=== PATIENT | male | born 1965 | race Caucasian/White ===

== ENCOUNTER 2017-06-09 11:55 | Observation (INO) | payer OTHER ==
--- NOTE | 2017-06-09 12:24 | EKG REPORT ---
SEVERITY:- OTHERWISE NORMAL ECG - SINUS TACHYCARDIA : Confirmed by: Jed Loera MD 09-Jun-2017 12:23:16
[2017-06-09] MEDS ORDERED: NORMAL SALINE 1000 ML 1,000 ML IV ONE (12:30)
--- NOTE | 2017-06-09 12:31 | ER Document Report ---
ED Medical Screen (RME) - General Chief Complaint: Chest Tightness Stated Complaint: CHEST PAIN Time Seen by Provider: 06/09/17 12:20 Notes: Patient presents after calling his primary care physician for a routine checkup. He states that he was told to come the emergency department after he was told the primary care physician that he has been having continued shortness of breath and sternal chest pain. He denies any history of heart attacks but has had a history of blood clots in his lungs and legs and was on Xarelto in the past. He denies any leg swelling or leg pain at this time. He states that since approximately new years he has been having continued shortness of breath and chest discomfort. TRAVEL OUTSIDE OF THE [place] IN LAST 30 DAYS: No - Related Data Allergies/Adverse Reactions: No Known Allergies Allergy (Verified 06/09/17 11:59) Past Medical History - Past Medical History Cardiac Medical History: Reports: Hx DVT - 2006, 2011 Past Surgical History: Reports: Hx Orthopedic Surgery - Right knee - Immunizations Hx Diphtheria, Pertussis, Tetanus Vaccination: Yes Review of Systems - Review of Systems Cardiovascular: Chest pain Respiratory: Short of breath Physical Exam - Vital signs Vitals: Temp Pulse Resp BP Pulse Ox 98.6 F 111 H 16 144/84 H 98 06/09/17 12:14 06/09/17 12:14 06/09/17 12:14 06/09/17 12:14 06/09/17 12:14 - General General appearance: Appears well Course - Vital Signs Vital signs: Temp Pulse Resp BP Pulse Ox 98.6 F 111 H 16 144/84 H 98 06/09/17 12:14 06/09/17 12:14 06/09/17 12:14 06/09/17 12:14 06/09/17 12:14
[2017-06-09 13:02] LABS: ABSOLUTE BASOPHILS # (AUTO) 0.1 10^3/uL (0.0-0.2); ABSOLUTE EOSINOPHILS # (AUTO) 0.1 10^3/uL (0.0-0.6); ABSOLUTE LYMPHOCYTES (AUTO) 1.7 10^3/uL (0.5-4.7); ABSOLUTE MONOCYTES (AUTO) 0.4 10^3/uL (0.1-1.4); ABSOLUTE NEUT (AUTO) 3.5 10^3/uL (1.7-8.2); EOSINOPHILS % (AUTO) 2.1 % (0-6); HEMATOCRIT 42.5 % (37.9-51.0); HEMOGLOBIN 14.2 g/dL (13.5-17.0); MEAN CORPUSCULAR HEMOGLOBIN 32.6 pg (27.0-33.4); MEAN CORPUSCULAR HGB CONC 33.4 g/dL (32.0-36.0); MEAN CORPUSCULAR VOLUME 98 fl (80-97); MONOCYTES % (AUTO) 7.7 % (3-13); PLATELET COUNT 248 10^3/uL (150-450); RED BLOOD COUNT 4.35 10^6/uL (4.35-5.55); RED CELL DISTRIBUTION WIDTH 14.7 % (11.5-14.0); SEGMENTED NEUTROPHILS % (AUTO) 60.2 % (42-78); TOTAL CELLS COUNTED % (AUTO) 100 %; WHITE BLOOD COUNT 5.8 10^3/uL (4.0-10.5)
[2017-06-09 13:09] LABS: INTERNATIONAL RATION (INR) 0.86; PROTHROMBIN TIME 12.3 SEC (11.4-15.4)
[2017-06-09 13:11] LABS: D-DIMER 0.35 ug/mL (0.00-0.50)
[2017-06-09 13:27] LABS: BLOOD UREA NITROGEN 10 mg/dL (7-20); CALCIUM 9.6 mg/dL (8.4-10.2); CARBON DIOXIDE 22 mmol/L (22-30); CHLORIDE 104 mmol/L (98-107); GLUCOSE 110 mg/dL (75-110)
[2017-06-09 13:28] LABS: ALANINE AMINOTRANSFERASE 21 U/L (21-72); ALBUMIN 4.6 g/dL (3.5-5.0); ALKALINE PHOSPHATASE 64 U/L (38-126); ANION GAP 15 (5-19); ASPARTATE AMINO TRANSFERASE 22 U/L (17-59); BILIRUBIN,DIRECT 0.2 mg/dL (0.0-0.4); BILIRUBIN,TOTAL 0.7 mg/dL (0.2-1.3)
[2017-06-09 13:36] LABS: NT PRO BNP 34 pg/mL (5-900)
[2017-06-09 13:37] LABS: TROPONIN I < 0.012 ng/mL
--- NOTE | 2017-06-09 13:37 | RADIOLOGY REPORT (SQ) ---
EXAM DESCRIPTION: CHEST SINGLE VIEW COMPLETED DATE/TIME: 06/09/2017 1:29 pm REASON FOR STUDY: TORIE, MADELEINE COMPARISON: 10/02/2015 EXAM PARAMETERS: NUMBER OF VIEWS: One view. TECHNIQUE: Single frontal radiographic view of the chest acquired. RADIATION DOSE: NA LIMITATIONS: None. FINDINGS: LUNGS AND PLEURA: No opacities, masses or pneumothorax. No pleural effusion. MEDIASTINUM AND HILAR STRUCTURES: No masses. Contour normal. HEART AND VASCULAR STRUCTURES: Heart normal in size. Normal vasculature. BONES: No acute findings. HARDWARE: None in the chest. OTHER: No other significant finding. IMPRESSION: NO ACUTE RADIOGRAPHIC FINDING IN THE CHEST. TECHNICAL DOCUMENTATION: JOB ID: [id number] [employer]- All Rights Reserved
--- NOTE | 2017-06-09 14:05 | RADIOLOGY REPORT (SQ) ---
EXAM DESCRIPTION: CTA CHEST COMPLETED DATE/TIME: 06/09/2017 1:52 pm REASON FOR STUDY: Chest pain tachycardia history of PE COMPARISON: AP chest 06/09/2017, 10/02/2015 TECHNIQUE: CT scan of the chest performed using helical scanning technique with dynamic intravenous contrast injection. Images reviewed with lung, soft tissue and bone windows. Reconstructed coronal and sagittal MPR images reviewed. Additional 3 dimensional post-processing performed to develop Maximal Intensity Projection images (MN P). All images stored on PACS. All CT scanners at this facility use dose modulation, iterative reconstruction, and/or weight based d osing when appropriate to reduce radiation dose to as low as reasonably achievable (ALARA). [facility]: Dose Right [facility]: CareDose [facility]: Dose Right [facility]: Teradose 4D [facility]: [email or web address] CONTRAST TYPE AND DOSE: contrast/concentration: Isovue 370.00 mg/ml; Total Contrast Delivered: 77.0 ml; Total Saline Delivered: 84.1 ml Contrast bolus optimized for the pulmonary arteries. Not diagnostic for the aorta. RENAL FUNCTION: Creatinine 0.96 RADIATION DOSE: CT Rad equipment meets quality standard of care and radiation dose reduction techniq ues were employed. CTDIvol: 16.5 - 18.4 mGy. DLP: 707 mGy-cm. . LIMITATIONS: None. FINDINGS: LUNGS AND PLEURA: No masses, infiltrates, pneumothorax. No pleural effusions, calcificati ons. AORTA AND GREAT VESSELS: No aneurysm. Contrast bolus not optimized for the aorta. HEART: No pericardial effusion. No significant coronary artery calcifications. PULMONARY ARTERIES: There is a tiny pulmonary embolus to the right lower lobe pulmonary artery extend ing into the posterior basal segmental pulmonary artery. This is best shown on axial images 66-75. HILAR AND MEDIASTINAL STRUCTURES: No identified masses or abnormal nodes. HARDWARE: None in the chest. UPPER ABDOMEN: No significant findings. Limited exam. THYROID AND OTHER SOFT TISSUES: No masses. No adenopathy. BONES: No acute or significant finding. 3D MIPS: Confirm above findings. OTHER: No other significant finding. IMPRESSION: Small pulmonary embolus to the right lower lobe pulmonary artery COMMENT: Quality ID # [id number]: Final reports with documentation of one or more dose reduction techniques (e.g., Automated exposure control, adjustment of the mA and/or kV according to patient size, use of iterative reconstruction technique) TECHNICAL DOCUMENTATION: JOB ID: [id number] [facility] [employer]- All Rights Reserved
[2017-06-09] MEDS ORDERED: ENOXAPARIN SODIUM INJ 100 MG/1 ML DISP.SYRIN SUBCUT SCH (14:15)
--- NOTE | 2017-06-09 14:17 | ER Document Report ---
ED General - General Chief Complaint: Chest Tightness Stated Complaint: CHEST PAIN Time Seen by Provider: 06/09/17 12:20 Notes: 52-year-old man presents with left-sided chest pain and increasing shortness of breath, the pain is constant and daily and remind him of when he had a blood clot before. He was previously on Coumadin after having a negative pro coagulation workup, and self discontinued that last summer. The pain is constant and mildly pleuritic and associated with intermittent shortness of breath. No hemoptysis or leg swelling. TRAVEL OUTSIDE OF THE [place] IN LAST 30 DAYS: No - Related Data Allergies/Adverse Reactions: No Known Allergies Allergy (Verified 06/09/17 11:59) Past Medical History - Social History Smoking Status: Never Smoker Chew tobacco use (# tins/day): No Frequency of alcohol use: Heavy Drug Abuse: None Family History: Reviewed & Not Pertinent Patient has suicidal ideation: No Patient has homicidal ideation: No - Past Medical History Cardiac Medical History: Reports: Hx DVT - 2006, 2011 Renal/ Medical History: Denies: Hx Peritoneal Dialysis Past Surgical History: Reports: Hx Orthopedic Surgery - Right knee - Immunizations Hx Diphtheria, Pertussis, Tetanus Vaccination: Yes Review of Systems - Review of Systems Notes: REVIEW OF SYSTEMS GEN: Denies fever, chills, weight loss ENT: Denies sore throat, nasal discharge, ear pain EYES: Denies blurry vision, eye pain, discharge CV: Chest pain no edema RESP: Shortness of breath g GI: Denies abdominal pain, nausea, vomiting, diarrhea MSK: Denies joint pain/swelling, edema, SKIN: Denies rash, skin lesions LYMPH: Denies swollen glands/lymph nodes NEURO: Denies headache, focal weakness or numbness, dizziness PSYCH: Denies depression, suicidal or homicidal ideation PHYSICAL EXAMINATION General: No acute distress, well-nourished Head: Atraumatic, normocephalic ENT: Mouth normal, oropharynx moist, no exudates or tonsillar enlargement Eyes: Conjunctiva normal, pupils equal, lids normal Neck: No JVD, supple, no guarding CVS: Slightly tachycardic, regular rhythm, no murmurs Resp: No resp distress, equal and normal breath sounds bilaterally GI: Nondistended, soft, no tenderness to palpation, no rebound or guarding Ext: No deformities, no edema, normal range of motion in upper and lower ext Back: No CVA or midline TTP Skin: No rash, warm Lymphatic: No lymphadeopathy noted Neuro: Awake, alert. Face symmetric. GCS 15. Physical Exam - Vital signs Vitals: Temp Pulse Resp BP Pulse Ox 98.6 F 111 H 16 144/84 H 98 06/09/17 12:14 06/09/17 12:14 06/09/17 12:14 06/09/17 12:14 06/09/17 12:14 Course - Re-evaluation Re-evalutation: 06/09/17 14:15 52-year-old male presents with chest pain and mild tachycardia in the setting of known thrombo-embolic disease. His exam is otherwise normal with no stigmata of heart failure. Labs were sent at triage and I ordered a CT pulmonary angiogram. He does not have an elevated troponin or BNP and a CT shows a segmental pulmonary embolus without signs of right heart strain. Discussed with hospitalist who agreed this patient can probably be discharged. He is comfortable with oral anticoagulant medication, has insurance, and is used it before. We will give him a dose of Lovenox here, and discharge with a supply of Eliquis. I have discussed with the patient there likely diagnosis, aftercare plan, follow-up plans and my usual and customary return precautions. They verbalized understanding of this. 06/09/17 14:28 Patient is now telling the hospital as he has been having some rectal bleeding. We agreed together it safer to bring him in the hospital. Hospitalist requested oral therapies were ordered this. - Vital Signs Vital signs: Temp Pulse Resp BP Pulse Ox 98.6 F 111 H 16 144/84 H 98 06/09/17 12:14 06/09/17 12:14 06/09/17 12:14 06/09/17 12:14 06/09/17 12:14 - Laboratory Result Diagrams: 06/09/17 12:44 06/09/17 12:44 Laboratory results interpreted by me: 06/09/17 12:44 MCV 98 H RDW 14.7 H - EKG Interpretation by Me EKG shows normal: Sinus rhythm Rate: Normal Rhythm: NSR When compared to previous EKG there are: Previous EKG unavailable Discharge - Discharge Clinical Impression: Pulmonary embolus Qualifiers: Pulmonary embolism type: other Chronicity: acute Acute cor pulmonale presence: without acute cor pulmonale Qualified Code(s): I26.99 - Other pulmonary embolism without acute cor pulmonale Condition: Good Disposition: ADMITTED OBSERVATION Admitting Provider: Hospitalist Unit Admitted: Telemetry Additional Instructions: You have been diagnosed with a blood clot in her lung. We felt that you are stable enough to be discharged home to begin anticoagulation therapy. If you develop worsening chest pain or shortness of breath or any other problems please return to the emergency room. It is likely based on her pain pattern that this is been there for about a month. Prescriptions: Apixaban [Eliquis] 2.5 mg PO Q12 #20 tablet Apixaban [Eliquis] 5 mg PO Q12 #30 tablet
[2017-06-09] MEDS ORDERED: RIVAROXABAN 10 MG TABLET PO ONE (14:27)
[2017-06-09] MEDS ORDERED: ENOXAPARIN SODIUM INJ 100 MG/1 ML DISP.SYRIN SUBCUT ONE (15:30)
--- NOTE | 2017-06-09 16:04 | PDOC H&P ---
History of Present Illness Admission Date/PCP: 06/09/17 14:35 NILE SIMPSON MD Patient complains of: Pulmonary embolism History of Present Illness: PHILIP DSOUZA is a 52 year old male with history of DVT/PE not currently on anticoagulation, who presents with six weeks of left sided-chest pain with deep breaths and occasional SOB with exertion. States that over New Years had long car ride to [place] and back to [place] and then over the past weeks will occasionally feel chest pain and SOB. Denies lower extremity swelling, pain, or erythema. Denies fevers, chills, abdominal pain, NV. Notes that he dose have history of VTE. First diagnosed in 2006 with right lower extremity DVT, unclear if there was a provoking factor. He was treated with Warfarin for 6 months. Warfarin was discontinued. Three-four years later, he developed left sided DVT. He thinks this was after plane ride to [place]. He was started on Warfarin and then switched by his PCP to Xarelto. He was on Xarelto for a few years. More recently he developed rectal bleeding. Colonscopy was negative. His PCP switched him to ASA 81mg and has not been on full dose anticoagulation since that time. Today, ED labs notable for negative D.dimer and troponin. Hg is stable at 14.2 Original plan was to discharge patient to home on Xarelto however he notes that he continues to have some rectal bleeding (blood on toilet paper and occasionally in toilet bowl). Denies history of hemorrhoids or diverticulosis. Will admit patient as observation and started on Xarelto. Past Medical History Cardiac Medical History: Reports: DVT - 2011, Pulmonary Embolism Past Surgical History Past Surgical History: Reports: Orthopedic Surgery - Right knee Social History Smoking Status: Never Smoker Frequency of Alcohol Use: Heavy Drugs: None Family History Family History: Reviewed & Not Pertinent, Other - Denies family history of VTE Parental Family History Reviewed: Yes - Non contributory Children Family History Reviewed: NA Sibling(s) Family History Reviewed.: NA Medication/Allergy Allergies/Adverse Reactions: No Known Allergies Allergy (Verified 06/09/17 11:59) Physical Exam Vital Signs: Temp Pulse Resp BP Pulse Ox 98.6 F 111 H 16 144/84 H 98 06/09/17 12:14 06/09/17 12:14 06/09/17 12:14 06/09/17 12:14 06/09/17 12:14 General appearance: PRESENT: no acute distress, well-developed, well-nourished Head exam: PRESENT: normocephalic Mouth exam: PRESENT: moist Respiratory exam: PRESENT: chest wall tenderness - Mild, symmetrical, unlabored Cardiovascular exam: PRESENT: RRR, +S1, +S2, tachycardia. ABSENT: systolic murmur GI/Abdominal exam: PRESENT: soft. ABSENT: distended, tenderness Rectal exam: PRESENT: deferred Extremities exam: ABSENT: calf tenderness, +1 edema Musculoskeletal exam: PRESENT: ambulatory Neurological exam: PRESENT: alert, awake, CN II-XII grossly intact Psychiatric exam: PRESENT: appropriate affect Skin exam: PRESENT: dry, warm Results Laboratory Results: 06/09/17 12:44 MCV 98 H RDW 14.7 H Labs- All tests 24 hr 06/09/17 06/09/17 06/09/17 12:44 12:44 12:44 WBC 5.8 RBC 4.35 Hgb 14.2 Hct 42.5 MCV 98 H MCH 32.6 MCHC 33.4 RDW 14.7 H Plt Count 248 Seg Neutrophils % 60.2 Lymphocytes % 29.0 Monocytes % 7.7 Eosinophils % 2.1 Basophils % 1.0 Absolute Neutrophils 3.5 Absolute Lymphocytes 1.7 Absolute Monocytes 0.4 Absolute Eosinophils 0.1 Absolute Basophils 0.1 PT 12.3 INR 0.86 D-Dimer 0.35 Sodium 141.0 Potassium 4.0 Chloride 104 Carbon Dioxide 22 Anion Gap 15 BUN 10 Creatinine 0.96 Est GFR ( Amer) > 60 Est GFR (Non-Af Amer) > 60 Glucose 110 Calcium 9.6 Magnesium 1.6 Total Bilirubin 0.7 Direct Bilirubin 0.2 Neonat Total Bilirubin Not Reportable Neonat Direct Bilirubin Not Reportable Neonat Indirect Bili Not Reportable AST 22 ALT 21 Alkaline Phosphatase 64 Troponin I NT-Pro-B Natriuret Pep Total Protein 7.0 Albumin 4.6 06/09/17 12:44 WBC RBC Hgb Hct MCV MCH MCHC RDW Plt Count Seg Neutrophils % Lymphocytes % Monocytes % Eosinophils % Basophils % Absolute Neutrophils Absolute Lymphocytes Absolute Monocytes Absolute Eosinophils Absolute Basophils PT INR D-Dimer Sodium Potassium Chloride Carbon Dioxide Anion Gap BUN Creatinine Est GFR ( Amer) Est GFR (Non-Af Amer) Glucose Calcium Magnesium Total Bilirubin Direct Bilirubin Neonat Total Bilirubin Neonat Direct Bilirubin Neonat Indirect Bili AST ALT Alkaline Phosphatase Troponin I < 0.012 NT-Pro-B Natriuret Pep 34 Total Protein Albumin Impressions: Chest X-Ray 06/09/17 12:28 IMPRESSION: NO ACUTE RADIOGRAPHIC FINDING IN THE CHEST. Chest/Abdomen CTA 06/09/17 13:25 IMPRESSION: Small pulmonary embolus to the right lower lobe pulmonary artery Assessment & Plan - Diagnosis (1) Pulmonary embolus Qualifiers: Pulmonary embolism type: other Chronicity: acute Acute cor pulmonale presence: without acute cor pulmonale Qualified Code(s): I26.99 - Other pulmonary embolism without acute cor pulmonale Is this a current diagnosis for this admission?: Yes Plan: CTA shows small RLL pulmonary embolus. Denies smoking, cancer history, testosterone use, history of FV Leiden, PT gene mutation, etc - History of VTE (see below) - Appears to be provoking factors for previous blood clots however patient has demonstrated multiple clots while not on full dose anticoagulation - Will re-challenge with Xarelto, received 20mg in ED. Will start 15mg BID for 21 days and then should be transitioned to 20mg daily indefinitely VTE history #1 First diagnosed in 2006 with right lower extremity DVT, unclear if there was a provoking factor. He was treated with Warfarin for 6 months. Warfarin was discontinued #2 Three-four years later, he developed left sided DVT. He thinks this was after plane ride to [place]. He was started on Warfarin and then switched by his PCP to Xarelto. He was on Xarelto for a few years (2) GI bleeding Is this a current diagnosis for this admission?: Yes Plan: Unclear etiology. Patient reports having colonoscopy at [facility] which was "normal" - Will have to watch for increased GI bleeding, drop in hemoglobin now that Xarelto has been re-started - If concerned, would consult GI for inpatient colonoscopy - Otherwise should be followed as outpatient with PCP - Time Time Spent: 50 to 70 Minutes Anticipated discharge: Home Within: within 24 hours - Inpatient Certification Medical Necessity: Risk of Complication if Not Cared For in Hospital - Worsening GI bleeding
[2017-06-09] MEDS: ENOXAPARIN SODIUM INJ 100 MG/1 ML DISP.SYRIN SUBCUT SCH (22:29)
[2017-06-10 07:18] LABS: HEMATOCRIT 39.7 % (37.9-51.0); HEMOGLOBIN 14.4 g/dL (13.5-17.0); MEAN CORPUSCULAR HEMOGLOBIN 35.7 pg (27.0-33.4); MEAN CORPUSCULAR HGB CONC 36.2 g/dL (32.0-36.0); MEAN CORPUSCULAR VOLUME 99 fl (80-97); PLATELET COUNT 248 10^3/uL (150-450); RED BLOOD COUNT 4.03 10^6/uL (4.35-5.55); RED CELL DISTRIBUTION WIDTH 14.6 % (11.5-14.0)
[2017-06-10 07:48] LABS: APPEARANCE,URINE CLEAR; BILIRUBIN,URINE NEGATIVE (NEGATIVE); COLOR,URINE YELLOW; GLUCOSE, URINE NEGATIVE (NEGATIVE); KETONES,URINE NEGATIVE (NEGATIVE); LEUKOCYTE ESTERASE,URINE NEGATIVE (NEGATIVE); NITRITE,URINE NEGATIVE (NEGATIVE); PROTEIN,URINE NEGATIVE (NEGATIVE); UROBILINOGEN,URINE NEGATIVE mg/dL (<2.0)
[2017-06-10] MEDS: ENOXAPARIN SODIUM INJ 100 MG/1 ML DISP.SYRIN SUBCUT SCH (09:49)
[2017-06-10 09:57] VITALS: BP 139/88
[2017-06-10 10:20] LABS: ANION GAP 9 (5-19); CARBON DIOXIDE 20 mmol/L (22-30); CHLORIDE 110 mmol/L (98-107); GLUCOSE 110 mg/dL (75-110)
[2017-06-10 10:23] LABS: BLOOD UREA NITROGEN 10 mg/dL (7-20); POTASSIUM 4.5 mmol/L (3.6-5.0)
--- NOTE | 2017-06-10 12:26 | PDOC DISCHARGE SUMMARY ---
General - Admit/Disc Date/PCP Admission Date/Primary Care Provider: 06/09/17 14:35 NILE MAGANA MD Discharge Date: 06/10/17 - Discharge Diagnosis (1) Pulmonary embolus Is this a current diagnosis for this admission?: Yes Summary: Small pulmonary embolus in the right lower lobe pulmonary artery. He has had no significant bleeding. He describes blood on his tissue after a bowel movement. His hemoglobin was 14.4. I spoke with his PCP, Dr. Magana at [facility]. The patient will need to follow-up with him for usual care. I specifically called him to find out the results of a colonoscopy that Mr. Dsouza had about 2 years ago. Apparently, he had polyps that were removed. There was no other gross abnormality. His next colonoscopy is due in 2019. (2) Bipolar 1 disorder Is this a current diagnosis for this admission?: Yes (3) Alcohol abuse Is this a current diagnosis for this admission?: Yes - Additional Information Discharge Diet: Regular Discharge Activity: Activity As Tolerated Prescriptions: Rivaroxaban [Xarelto] 15 mg PO BID 21 Days #42 tablet Rivaroxaban [Xarelto] 20 mg PO DAILY 30 Days #30 tablet Home Medications: Allopurinol [Zyloprim 300 mg Tablet] 300 mg PO DAILY 06/09/17 Aspirin [Aspirin 325 mg Tablet] 325 mg PO DAILY 06/09/17 Esomeprazole Magnesium [Nexium] 20 mg PO DAILY 06/09/17 Trazodone HCl [Desyrel 50 mg Tablet] 50 mg PO DAILY 06/09/17 Rivaroxaban [Xarelto] 15 mg PO BID 21 Days #42 tablet 06/10/17 Rivaroxaban [Xarelto] 20 mg PO DAILY 30 Days #30 tablet 06/10/17 History of Present Illness History of Present Illness: PHILIP DSOUZA is a 52 year old male with history of DVT/PE not currently on anticoagulation, who presents with six weeks of left sided-chest pain with deep breaths and occasional SOB with exertion. States that over New Year's he had a long car ride to [place] and back to [place]. And then over the past weeks will occasionally feel chest pain and SOB. Denies lower extremity swelling, pain, or erythema. Denies fevers, chills, abdominal pain, NV. Notes that he does have history of VTE. First diagnosed in 2006 with right lower extremity DVT, unclear if there was a provoking factor. He was treated with Warfarin for 6 months. Warfarin was discontinued. Three-four years later, he developed left sided DVT. He thinks this was after plane ride to [place]. He was started on Warfarin and then switched by his PCP to Xarelto. He was on Xarelto for a few years. More recently he developed rectal bleeding. Colonscopy was negative. His PCP switched him to ASA 81mg and has not been on full dose anticoagulation since that time. Today, ED labs notable for negative D.dimer and troponin. Hg is stable at 14.2. The original plan was to discharge patient to home on Xarelto. However, he noted that he continues to have some rectal bleeding (blood on toilet paper and occasionally in toilet bowl). Denies history of hemorrhoids or diverticulosis. Hospital Course Hospital Course: He was admitted overnight to observe him for any significant bleeding. He was started on enoxaparin 1 mg/kg twice daily. He did not have any significant bleeding overnight. His hemoglobin was 14.4. His hospital stay was uneventful. He was advised to discontinue alcohol, released drink less. Physical Exam Vital Signs: Temp Pulse Resp BP Pulse Ox 98.8 F 76 16 139/88 H 97 06/10/17 09:56 06/10/17 09:56 06/10/17 09:56 06/10/17 09:56 06/10/17 09:56 General appearance: PRESENT: no acute distress, well-developed, well-nourished Head exam: PRESENT: atraumatic, normocephalic Eye exam: PRESENT: conjunctiva pink, EOMI, PERRLA. ABSENT: scleral icterus Ear exam: PRESENT: normal external ear exam Mouth exam: PRESENT: moist, tongue midline Neck exam: ABSENT: carotid bruit, JVD, lymphadenopathy, thyromegaly Respiratory exam: PRESENT: clear to auscultation sharon. ABSENT: rales, rhonchi, wheezes Cardiovascular exam: PRESENT: RRR. ABSENT: diastolic murmur, rubs, systolic murmur Pulses: PRESENT: normal dorsalis pedis pul Vascular exam: PRESENT: normal capillary refill GI/Abdominal exam: PRESENT: normal bowel sounds, soft. ABSENT: distended, guarding, mass, organolmegaly, rebound, tenderness Rectal exam: PRESENT: deferred Extremities exam: PRESENT: full ROM. ABSENT: calf tenderness, clubbing, pedal edema Neurological exam: PRESENT: alert, awake, oriented to person, oriented to place , oriented to time, oriented to situation, CN II-XII grossly intact. ABSENT: motor sensory deficit Psychiatric exam: PRESENT: appropriate affect, normal mood. ABSENT: homicidal ideation, suicidal ideation Skin exam: PRESENT: dry, intact, warm. ABSENT: cyanosis, rash Results Laboratory Results: 06/10/17 05:10 06/10/17 09:41 06/10/17 06/10/17 06/10/17 05:10 05:10 05:10 WBC 5.0 RBC 4.03 L Hgb 14.4 Hct 39.7 MCV 99 H MCH 35.7 H MCHC 36.2 H RDW 14.6 H Plt Count 248 Sodium Cancelled Potassium Cancelled Chloride Cancelled Carbon Dioxide Cancelled Anion Gap Cancelled BUN Cancelled Creatinine Cancelled Est GFR ( Amer) Cancelled Est GFR (Non-Af Amer) Cancelled Glucose Cancelled Calcium Cancelled Urine Color YELLOW Urine Appearance CLEAR Urine pH 6.0 Ur Specific [place] 1.010 Urine Protein NEGATIVE Urine Glucose (UA) NEGATIVE Urine Ketones NEGATIVE Urine Blood SMALL H Urine Nitrite NEGATIVE Ur Leukocyte Esterase NEGATIVE Urine WBC (Auto) 0 Urine RBC (Auto) 0 Stool Occult Blood 06/10/17 06/10/17 09:41 10:35 WBC RBC Hgb Hct MCV MCH MCHC RDW Plt Count Sodium 139.0 Potassium 4.5 Chloride 110 H Carbon Dioxide 20 L Anion Gap 9 BUN 10 Creatinine 0.79 Est GFR ( Amer) > 60 Est GFR (Non-Af Amer) > 60 Glucose 110 Calcium 9.0 Urine Color Urine Appearance Urine pH Ur Specific [place] Urine Protein Urine Glucose (UA) Urine Ketones Urine Blood Urine Nitrite Ur Leukocyte Esterase Urine WBC (Auto) Urine RBC (Auto) Stool Occult Blood POSITIVE 06/09/17 17:37 Troponin I < 0.012 Impressions: Chest X-Ray 06/09/17 12:28 IMPRESSION: NO ACUTE RADIOGRAPHIC FINDING IN THE CHEST. Chest/Abdomen CTA 06/09/17 13:25 IMPRESSION: Small pulmonary embolus to the right lower lobe pulmonary artery Qualifiers - * PATEINT BEING DISCHARGED WITH ANY OF THE FOLLOWING DIAGNOSIS?: No
== END 2017-06-10 12:34 | disposition home or self-care (01) ==
LOC: ER 11:55 → EH 14:35
PROVIDERS: ADMIT Emergency Medicine; ATTEND Emergency Medicine
DX: I26.99 Other pulmonary embolism without acute cor pulmonale (principal); F31.9 Bipolar disorder, unspecified; F10.10 Alcohol abuse, uncomplicated; K62.5 Hemorrhage of anus and rectum; Z86.718 Personal history of other venous thrombosis and embolism; Z86.711 Personal history of pulmonary embolism; Z79.82 Long term (current) use of aspirin; Z98.890 Other specified postprocedural states
CPT/HCPCS: 93005; 99285; 96372; 36415 ×2; 83735; 85025; 85027; 85610; 82272; 80048; 80053; 81001; 84484; 85379; 83880; 71045; 71275; 93010; G0378; J3490; J7030; J1650 ×2

== ENCOUNTER 2018-09-17 08:30 | Emergency (ER) | payer OTHER ==
--- NOTE | 2018-09-17 09:51 | ER Document Report ---
ED Medical Screen (RME) - General Chief Complaint: Chest Pain Stated Complaint: CHEST PAIN,SHORT OF BREATH Time Seen by Provider: 09/17/18 09:45 Primary Care Provider: NILE SIMPSON MD [Primary Care Provider] - Follow up as needed TRAVEL OUTSIDE OF THE [place] IN LAST 30 DAYS: No - HPI Notes: 09/17/18 09:49 Patient is a 53-year-old male with a history of anxiety/depression, bipolar, gout, and PE (on Xarelto) who presents complaining of sternal chest pain that does not radiate that began intermittently over the past 1 to 2 months. Patient states that on occasion he will have shortness of breath associated. He is otherwise feeling well and is eating and drinking without difficulty. He has had 2 friends recently from heart attacks. Denies SAAVEDRA, fever, neck pain, URI , Abd pain, dysuria, back pain, or rash. I have treated and performed a rapid initial assessment of this patient. A comprehensive ED assessment and evaluation of the patient, analysis of test results and completion of medical decision making process will be conducted by additional ED providers. PHYSICAL EXAMINATION: GENERAL: Well-appearing, well-nourished and in no acute distress. A&Ox4. Ans wers questions appropriately. LUNGS: Breath sounds clear to auscultation bilaterally and equal. No wheezes rales or rhonchi. HEART: Regular rate and rhythm without murmurs, rubs, gallops. Extremities: No cyanosis, clubbing, or edema b/l. No lower extremity asymmetry. Dominick negative bilaterally. NEUROLOGICAL: Normal speech, normal gait. PSYCH: Normal mood, normal affect. - Related Data Allergies/Adverse Reactions: No Known Allergies Allergy (Verified 09/17/18 08:32) Past Medical History - Past Medical History Cardiac Medical History: Reports: Hx DVT - 2006, 2012, Hx Pulmonary Embolism Renal/ Medical History: Denies: Hx Peritoneal Dialysis GI Medical History: Reports: Hx Gastroesophageal Reflux Disease Past Surgical History: Reports: Hx Orthopedic Surgery - Right knee - Immunizations Hx Diphtheria, Pertussis, Tetanus Vaccination: Yes Physical Exam - Vital signs Vitals: Temp Pulse Resp BP Pulse Ox 97.7 F 80 14 142/90 H 98 09/17/18 08:41 09/17/18 08:41 09/17/18 08:41 09/17/18 08:41 09/17/18 08:41 Course - Vital Signs Vital signs: Temp Pulse Resp BP Pulse Ox 97.7 F 80 14 142/90 H 98 09/17/18 08:41 09/17/18 08:41 09/17/18 08:41 09/17/18 08:41 09/17/18 08:41 Doctor's Discharge - Discharge Referrals: NILE SIMPSON MD [Primary Care Provider] - Follow up as needed
[2018-09-17 10:02] LABS: ABSOLUTE EOSINOPHILS # (AUTO) 0.1 10^3/uL (0.0-0.6); ABSOLUTE MONOCYTES (AUTO) 0.3 10^3/uL (0.1-1.4); ABSOLUTE NEUT (AUTO) 3.5 10^3/uL (1.7-8.2); BASOPHILS % (AUTO) 0.7 % (0-2); EOSINOPHILS % (AUTO) 1.7 % (0-6); HEMATOCRIT 41.3 % (37.9-51.0); HEMOGLOBIN 13.8 g/dL (13.5-17.0); LYMPHOCYTES % (AUTO) 33.6 % (13-45); MEAN CORPUSCULAR HEMOGLOBIN 33.3 pg (27.0-33.4); MEAN CORPUSCULAR HGB CONC 33.4 g/dL (32.0-36.0); MEAN CORPUSCULAR VOLUME 100 fl (80-97); MONOCYTES % (AUTO) 5.7 % (3-13); PLATELET COUNT 276 10^3/uL (150-450); RED BLOOD COUNT 4.14 10^6/uL (4.35-5.55); RED CELL DISTRIBUTION WIDTH 14.6 % (11.5-14.0); SEGMENTED NEUTROPHILS % (AUTO) 58.3 % (42-78); TOTAL CELLS COUNTED % (AUTO) 100 %
[2018-09-17 10:07] LABS: INTERNATIONAL RATION (INR) 1.79; PROTHROMBIN TIME 21.7 SEC (11.4-15.4)
--- NOTE | 2018-09-17 10:09 | RADIOLOGY REPORT (SQ) ---
EXAM DESCRIPTION: CHEST SINGLE VIEW COMPLETED DATE/TIME: 09/17/2018 10:00 am REASON FOR STUDY: CP COMPARISON: None. EXAM PARAMETERS: NUMBER OF VIEWS: One view. TECHNIQUE: Single frontal radiographic view of the chest acquired. RADIATION DOSE: NA LIMITATIONS: None. FINDINGS: LUNGS AND PLEURA: No opacities, masses or pneumothorax. No pleural effusion. MEDIASTINUM AND HILAR STRUCTURES: No masses. Contour normal. HEART AND VASCULAR STRUCTURES: Heart normal in size. Normal vasculature. BONES: No acute findings. HARDWARE: None in the chest. OTHER: No other significant finding. IMPRESSION: NO ACUTE RADIOGRAPHIC FINDING IN THE CHEST. TECHNICAL DOCUMENTATION: JOB ID: [id number] [employer]- All Rights Reserved Reading location - IP/workstation name: [email or web address]
[2018-09-17 10:25] LABS: ALANINE AMINOTRANSFERASE 20 U/L (21-72); ALKALINE PHOSPHATASE 61 U/L (38-126); ANION GAP 10 (5-19); ASPARTATE AMINO TRANSFERASE 28 U/L (17-59); BILIRUBIN,DIRECT 0.3 mg/dL (0.0-0.4); BILIRUBIN,TOTAL 0.7 mg/dL (0.2-1.3); BLOOD UREA NITROGEN 11 mg/dL (7-20); CALCIUM 9.4 mg/dL (8.4-10.2); CARBON DIOXIDE 26 mmol/L (22-30); CHLORIDE 104 mmol/L (98-107); GLUCOSE 97 mg/dL (75-110); POTASSIUM 4.6 mmol/L (3.6-5.0); SODIUM 139.8 mmol/L (137-145); TOTAL PROTEIN 6.6 g/dL (6.3-8.2)
[2018-09-17 10:36] LABS: NT PRO BNP 47 pg/mL (5-900)
[2018-09-17 10:39] LABS: TROPONIN I < 0.012 ng/mL
--- NOTE | 2018-09-17 15:20 | ER Document Report ---
ED General - General Chief Complaint: Chest Pain Stated Complaint: CHEST PAIN,SHORT OF BREATH Time Seen by Provider: 09/17/18 09:45 Primary Care Provider: BREE YORK MD [ACTIVE STAFF] - Follow up in 3-5 days (cardiology ) NILE SIMPSON MD [Primary Care Provider] - Follow up as needed Notes: Patient is a 53-year-old male that presents to the emergency department for chief complaint of chest pain. The patient reports that the pain started few weeks ago and has been on and off. The currently rate the pain as 0 out of 10, and described as sharp intermittent pain, in the left chest, that is nonradia ting, and not exertional. They have had associated shortness of breath at times. Denies any nausea, vomiting or diaphoresis. Their risk factors for heart disease include age of 53, but no history of diabetes, no family history of early coronary disease, no hypertension, smoking history, obesity or hyperlipidemia. Patient does have a history of PE, but has been on Xarelto, and has not had any issues since then. He does report being rather stressed out more recently at his job because of increased workload. Past Medical History: GERD, PE, DVT Past Surgical History: Denies surgical history Social History: Admits to drinking 6 beers daily, denies tobacco use or illicit drug use. Family History: Reviewed and noncontributory for presenting illness Allergies: Reviewed, see documented allergy list. REVIEW OF SYSTEMS: Other than noted above, the 12 point review of systems was reviewed with the patient and were negative, all pertinent findings are included in the HPI. PHYSICAL EXAMINATION: Vital signs reviewed, nursing noted reviewed. GENERAL: Well-appearing, well-nourished and in no acute distress. HEAD: Atraumatic, normocephalic. EYES: Eyes appear normal, extraocular movements intact, sclera anicteric, conjunctiva are normal. ENT: nares patent, oropharynx clear without exudates. Moist mucous membranes. NECK: Normal range of motion, supple without lymphadenopathy LUNGS: Breath sounds clear to auscultation bilaterally and equal. No wheezes rales or rhonchi. HEART: Regular rate and rhythm without murmurs ABDOMEN: Soft, nontender, normoactive bowel sounds. No rebound, guarding, or rigidity. No masses appreciated. EXTREMITIES: Nontender, good range of motion, no pitting or edema. NEUROLOGICAL: No focal neurological deficits. Moves all extremities spontaneou sly Motor and sensory grossly intact on exam. PSYCH: Appears mildly anxious on exam SKIN: Warm, Dry, normal turgor, no rashes or lesions noted on exposed skin TRAVEL OUTSIDE OF THE [place] IN LAST 30 DAYS: No - Related Data Allergies/Adverse Reactions: No Known Allergies Allergy (Verified 09/17/18 08:32) Past Medical History - Social History Smoking Status: Unknown if Ever Smoked Chew tobacco use (# tins/day): Yes Frequency of alcohol use: Heavy Drug Abuse: None Family History: Reviewed & Not Pertinent, Other - Denies family history of VTE Patient has suicidal ideation: No Patient has homicidal ideation: No - Past Medical History Cardiac Medical History: Reports: Hx DVT - 2006, 2011, Hx Pulmonary Embolism Renal/ Medical History: Denies: Hx Peritoneal Dialysis GI Medical History: Reports: Hx Gastroesophageal Reflux Disease Musculoskeletal Medical History: Reports Hx Arthritis - gout Psychiatric Medical History: Reports: Hx Depression Past Surgical History: Reports: Hx Orthopedic Surgery - Right knee - Immunizations Hx Diphtheria, Pertussis, Tetanus Vaccination: Yes Physical Exam - Vital signs Vitals: Temp Pulse Resp BP Pulse Ox 97.7 F 80 14 142/90 H 98 09/17/18 08:41 09/17/18 08:41 09/17/18 08:41 09/17/18 08:41 09/17/18 08:41 Course - Re-evaluation Re-evalutation: Presentation of chest pain in an otherwise well appearing patient. Low clinical suspicion for ACS given clinical history, exam, EKG without ST elevations or depressions, and negative initial troponin. HEART score less than or equal to 3. CXR without evidence of pneumothorax or pneumonia. No widened mediastinum. Aortic dissection also seems unlikely given history, symmetric pulses, CXR, and vitals. HEART Score: History 0 ECG 0 Age 1 Risk Factors 1 Troponin 0 Total: 2 Chest pain in a patient without evidence of cardiac or other serious etiology on workup today. I discussed with patient that, based on their age, risk factors and emergency department testing today, the likelihood that their symptoms are related to a heart attack is very low (estimated risk of heart attack or over the next 30 days of less than 1%). The patient demonstrates decision making capacity and has verbalized an understanding of these risks to me. Based on this, the patient has chosen to follow-up as an outpatient. Usual chest pain return precautions reviewed. The patient states understanding and agreement with this plan. CTA of the chest was negative as well, patient was at high risk because he said history of DVT and PE, despite being on Xarelto, however this was negative, his second troponin was negative as well, patient results were reviewed with him, I felt he the patient is low risk after 2- troponins, will have him follow-up with cardiology, for further evaluation, patient was agreeable with this plan of care. Laboratory 09/17/18 09/17/18 09/17/18 09:55 09:55 09:55 WBC 6.0 RBC 4.14 L Hgb 13.8 Hct 41.3 MCV 100 H MCH 33.3 MCHC 33.4 RDW 14.6 H Plt Count 276 Seg Neutrophils % 58.3 Lymphocytes % 33.6 Monocytes % 5.7 Eosinophils % 1.7 Basophils % 0.7 Absolute Neutrophils 3.5 Absolute Lymphocytes 2.0 Absolute Monocytes 0.3 Absolute Eosinophils 0.1 Absolute Basophils 0.0 PT 21.7 H INR 1.79 Sodium 139.8 Potassium 4.6 Chloride 104 Carbon Dioxide 26 Anion Gap 10 BUN 11 Creatinine 0.81 Est GFR ( Amer) > 60 Est GFR (Non-Af Amer) > 60 Glucose 97 Calcium 9.4 Total Bilirubin 0.7 Direct Bilirubin 0.3 Neonat Total Bilirubin Not Reportable Neonat Direct Bilirubin Not Reportable Neonat Indirect Bili Not Reportable AST 28 ALT 20 L Alkaline Phosphatase 61 Troponin I NT-Pro-B Natriuret Pep Total Protein 6.6 Albumin 4.0 09/17/18 09/17/18 09:55 14:30 WBC RBC Hgb Hct MCV MCH MCHC RDW Plt Count Seg Neutrophils % Lymphocytes % Monocytes % Eosinophils % Basophils % Absolute Neutrophils Absolute Lymphocytes Absolute Monocytes Absolute Eosinophils Absolute Basophils PT INR Sodium Potassium Chloride Carbon Dioxide Anion Gap BUN Creatinine Est GFR ( Amer) Est GFR (Non-Af Amer) Glucose Calcium Total Bilirubin Direct Bilirubin Neonat Total Bilirubin Neonat Direct Bilirubin Neonat Indirect Bili AST ALT Alkaline Phosphatase Troponin I < 0.012 < 0.012 NT-Pro-B Natriuret Pep 47 Total Protein Albumin Chest X-Ray 09/17/18 09:48 IMPRESSION: NO ACUTE RADIOGRAPHIC FINDING IN THE CHEST. Chest/Abdomen CTA 09/17/18 15:20 IMPRESSION: No PE. No acute findings. - Vital Signs Vital signs: Temp Pulse Resp BP Pulse Ox 98.4 F 80 12 124/66 97 09/17/18 17:01 09/17/18 08:41 09/17/18 17:01 09/17/18 17:01 09/17/18 17:01 - Laboratory Result Diagrams: 09/17/18 09:55 09/17/18 09:55 Laboratory results interpreted by me: 09/17/18 09/17/18 09/17/18 09:55 09:55 09:55 RBC 4.14 L MCV 100 H RDW 14.6 H PT 21.7 H ALT 20 L Discharge - Discharge Clinical Impression: Chest pain Qualifiers: Chest pain type: unspecified Qualified Code(s): R07.9 - Chest pain, unspecified Condition: Stable Disposition: HOME, SELF-CARE Instructions: Chest Pain of Unclear Cause ([facility]) Additional Instructions: Please follow-up with cardiology to schedule stress test within the next 30 days, ideally within the next 2 weeks. Continue all of your prior medications as prescribed. And you can also follow-up with her primary care physician. If your symptoms worsen or do not improve, do not hesitate to return to the emergency department. Referrals: NILE SIMPSON MD [Primary Care Provider] - Follow up as needed BREE YORK MD [ACTIVE STAFF] - Follow up in 3-5 days (cardiology )
--- NOTE | 2018-09-17 16:13 | RADIOLOGY REPORT (SQ) ---
EXAM DESCRIPTION: CTA CHEST COMPLETED DATE/TIME: 09/17/2018 4:01 pm REASON FOR STUDY: chest pain, hx pe COMPARISON: 06/09/2017 TECHNIQUE: CT scan of the chest performed using helical scanning technique with dynamic intravenous contrast injection. Images reviewed with lung, soft tissue and bone windows. Reconstructed coronal and sagittal MPR images reviewed. Additional 3 dimensional post-processing performed to develop Maximal Intensity Projection images (WA P). All images stored on PACS. All CT scanners at this facility use dose modulation, iterative reconstruction, and/or weight based d osing when appropriate to reduce radiation dose to as low as reasonably achievable (ALARA). [facility]: Dose Right [facility]: CareDose [facility]: Dose Right [facility]: Teradose 4D [facility]: Paybook CONTRAST TYPE AND DOSE: contrast/concentration: Isovue 350.00 mg/ml; Total Contrast Delivered: 77.0 ml; Total Saline Delivered: 110.0 ml Contrast bolus optimized for the pulmonary arteries. Not diagnostic for the aorta. RENAL FUNCTION: GFR > 60. RADIATION DOSE: CT Rad equipment meets quality standard of care and radiation dose reduction techniq ues were employed. CTDIvol: 18.6 - 24.8 mGy. DLP: 744 mGy-cm. . LIMITATIONS: None. FINDINGS: LUNGS AND PLEURA: No masses, infiltrates, or pneumothorax. No pleural effusions or pleura l calcifications. AORTA AND GREAT VESSELS: No aneurysm. Contrast bolus not optimized for the aorta. HEART: No pericardial effusion. PULMONARY ARTERIES: No emboli visualized in the main pulmonary arteries or the segmental branches. HILAR AND MEDIASTINAL STRUCTURES: No identified masses or abnormal nodes. HARDWARE: None in the chest. UPPER ABDOMEN: No significant findings. Limited exam. THYROID AND OTHER SOFT TISSUES: No masses. No adenopathy. BONES: No acute or significant finding. 3D MIPS: Confirm above findings. OTHER: No other significant finding. IMPRESSION: No PE. No acute findings. COMMENT: Quality ID # [id number]: Final reports with documentation of one or more dose reduction techniques (e.g., Automated exposure control, adjustment of the mA and/or kV according to patient size, use of iterative reconstruction technique) TECHNICAL DOCUMENTATION: JOB ID: [id number] [employer]- All Rights Reserved Reading location - IP/workstation name: [email or web address]
[2018-09-17 17:08] VITALS: BP 124/66
--- NOTE | 2018-09-17 19:29 | EKG REPORT ---
SEVERITY:- NORMAL ECG - SINUS RHYTHM : Confirmed by: Barb Villanueva MD 17-Sep-2018 19:28:41
== END 2018-09-17 17:07 | disposition home or self-care (01) ==
LOC: ER 08:30
DX: R07.9 Chest pain, unspecified (principal); R06.02 Shortness of breath; Z79.02 Long term (current) use of antithrombotics/antiplatelets; Z86.711 Personal history of pulmonary embolism; Z86.718 Personal history of other venous thrombosis and embolism; Z72.0 Tobacco use
CPT/HCPCS: 36415; 71045; 71275; 80053; 83880; 84484; 85025; 85610; 93005; 93010; 99285